=== PATIENT | female | born 1950 | race Caucasian/White ===

== ENCOUNTER 2022-09-13 03:13 | Emergency (ER) | payer OTHER ==
[~2022-09-13] VITALS: Ht 160 cm; Wt 77.1 kg
[2022-09-13 03:26] VITALS: BP 131/94
--- NOTE | 2022-09-13 03:38 | NUR ---
PT IN ROOM 8
[2022-09-13 03:42] LABS: BILIRUBIN,URINE NEGATIVE (NEGATIVE); BLOOD, URINE 3+ (NEGATIVE); LEUKOCYTE ESTERASE ,URINE 1+ (NEGATIVE); NITRITE, URINE NEGATIVE (NEGATIVE); UGLUCOSE NEGATIVE (NEGATIVE)
[2022-09-13 03:43] LABS: COLOR,URINE SLIGHT BLOODY (YELLOW)
[2022-09-13 03:44] LABS: APPEARANCE,URINE SLIGHTLY HAZY (CLEAR)
--- NOTE | 2022-09-13 03:48 | NUR ---
71YR OLD FEMALE BIB SELF C/O PAIN WITH URINATION X1DAY . HX OF UTIS IN PAST PT STATES SX STARTED X1DAY 9/10 PRESSURE LIKE PAIN IN RLQ. +BLOOD IN URINE SX OF BURNING URGENCY AND FREQ. SULF TRIMETHOPRIM (PT STATES SHE HAS A RESISTANCE TO TRIMETHOPRIM) HTN
--- NOTE | 2022-09-13 03:49 | NUR ---
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
--- NOTE | 2022-09-13 03:49 | NUR ---
URINE COLLECTED AND SENT TO LAB
[2022-09-13 03:51] LABS: RBC,URINE 50-80 /HPF (0-5)
[2022-09-13 03:52] LABS: RED BLOOD CELL CASTS,URINE 0-10 /LPF (None Seen)
[2022-09-13] MEDS ORDERED: PHENAZOPYRIDINE 100 MG TAB PO ONE (03:55)
[2022-09-13] MEDS ORDERED: cefTRIAXone 1,000 MG in LIDOCAINE MPF 1% 2.1 ML IM ONE (03:55)
[2022-09-13] MEDS ORDERED: KETOROLAC 30 MG/ML VIAL IM ONE (03:55)
[2022-09-13] MEDS ORDERED: PYR100 PO (03:57)
[2022-09-13] MEDS ORDERED: NAPR-54 PO (03:57)
[2022-09-13] MEDS ORDERED: CEPH-588 PO (03:57)
[2022-09-13] MEDS ORDERED: cefTRIAXone 1,000 MG VIAL ONE (03:59)
[2022-09-13] MEDS ORDERED: LIDOCAINE MPF 1% 5 ML ONE (04:00)
--- NOTE | 2022-09-13 04:21 | NUR ---
Patient discharged with v/s stable. Written and verbal after care instructions given and explained. Patient verbalized understanding. Ambulatory with steady gait. All questions addressed prior to discharge. Advised to follow up with PMD.
== END 2022-09-13 04:21 | disposition home or self-care (01) ==
LOC: MED 03:13
DX: N39.0 Urinary tract infection, site not specified (principal); I10 Essential (primary) hypertension; Z88.1 Allergy status to other antibiotic agents; Z88.2 Allergy status to sulfonamides; Z90.710 Acquired absence of both cervix and uterus; Z98.890 Other specified postprocedural states
CPT/HCPCS: 81001; 87086; 96372; 99284; J0696; J1885; J2001

== ENCOUNTER 2023-01-10 20:30 | Emergency (ER) | payer OTHER ==
[~2023-01-10] VITALS: Ht 160 cm; Wt 80.3 kg
[~2023-01-10 20:30] MED LIST: CEPH-588 PO; NAPR-54 PO; PYR100 PO
[2023-01-10 21:15] VITALS: BP 149/78; PULSE 68; RESP 16; TEMP 97.4; O2SAT 96
[2023-01-10 22:01] LABS: APPEARANCE,URINE CLEAR (CLEAR); BILIRUBIN,URINE NEGATIVE (NEGATIVE); BLOOD, URINE 3+ (NEGATIVE); COLOR,URINE YELLOW (YELLOW); LEUKOCYTE ESTERASE ,URINE 1+ (NEGATIVE); NITRITE, URINE NEGATIVE (NEGATIVE); PROTEIN,URINE NEGATIVE (NEGATIVE); UGLUCOSE NEGATIVE (NEGATIVE); UROBILINOGEN,URINE 0.2 EU/dL (0.2 - 1)
[2023-01-10 22:14] LABS: BACTERIA,URINE 2+ /HPF (None Seen)
[2023-01-10 22:15] LABS: RBC,URINE TOO NUMEROUS TO COUN /HPF (0-5); SQUAMOUS EPITHELIAL CELL,UR 4-10 (MOD) /LPF (0-3 (FEW))
[2023-01-10 22:16] LABS: WBC,URINE 20-60 /HPF (0-5)
[2023-01-10 22:29] VITALS: O2SAT 96
[2023-01-10] MEDS ORDERED: PHEN-1593 PO (23:15)
[2023-01-10] MEDS ORDERED: CEPH-588 PO (23:15)
[2023-01-10 23:22] VITALS: BP 127/74; PULSE 64; RESP 17; TEMP 97
== END 2023-01-10 23:22 | disposition home or self-care (01) ==
LOC: MED 20:30
DX: N39.0 Urinary tract infection, site not specified (principal); I10 Essential (primary) hypertension; Z79.899 Other long term (current) drug therapy; Z79.2 Long term (current) use of antibiotics; Z79.1 Long term (current) use of non-steroidal anti-inflammatories (NSAID); Z88.1 Allergy status to other antibiotic agents; Z88.2 Allergy status to sulfonamides
CPT/HCPCS: 81001; 87086; 99283